=== PATIENT | female | born 1955 | race Caucasian/White ===

== ENCOUNTER 2021-07-22 13:48 | Inpatient (IN) | payer MEDICARE, BC ==
[2021-07-22] MEDS ORDERED: Sodium Chloride 0.9% 10 ML Syringe FLUSH PRN (14:51)
[2021-07-22] MEDS ORDERED: Sodium Chloride 0.9% 1,000 ML IV STA (15:12)
[2021-07-22] MEDS ORDERED: Metoclopramide 10 MG/2 ML SDV IVPUSH ONE (15:12)
[2021-07-22 16:54] LABS: CORONAVIRUS COVID-19 NAA POSITIVE (NEGATIVE)
[2021-07-22] MEDS ORDERED: Pantoprazole 40 MG Vial ONE (19:57)
[2021-07-22] MEDS ORDERED: Acetaminophen 325 MG Tab PO PRN ×2 (19:57→20:10)
[2021-07-22] MEDS ORDERED: Ondansetron 8 MG in Sodium Chloride 0.9% 50 ML IV PRN (19:57)
[2021-07-22] MEDS ORDERED: Dextrose 5%-0.45% NaCl 1,000 ML IV SCH (20:00)
[2021-07-23] MEDS: Multivitamin Tab PO SCH (08:25)
[2021-07-23] MEDS: Zinc Sulfate 220 MG Cap PO SCH (08:25)
[2021-07-23] MEDS: Enoxaparin 40 MG/0.4 ML Syringe SUBCUT SCH (08:25)
[2021-07-23] MEDS: Famotidine 20 MG Tab PO SCH (08:26)
[2021-07-23] MEDS ORDERED: predniSONE 10 MG Tab PO SCH (09:00)
[2021-07-23] MEDS ORDERED: REMDESIVIR 200 MG in Sodium Chloride 0.9% 250 ML IV ONE (09:00)
[2021-07-23] MEDS ORDERED: Dexamethasone 6 MG TABLET PO SCH (09:00)
[2021-07-23] MEDS ORDERED: Potassium Chloride 10 MEQ in Premix Bag 1 BAG IV SCH (11:00)
[2021-07-23] MEDS: Promethazine 25 MG Tab PO PRN (11:12)
[2021-07-23] MEDS ORDERED: Potassium Chloride 20 MEQ Tab.ER PO ONE (11:30)
[2021-07-23 17:41] VITALS: PULSE 79
[2021-07-24] MEDS: Multivitamin Tab PO SCH (08:00)
[2021-07-24] MEDS: Enoxaparin 40 MG/0.4 ML Syringe SUBCUT SCH (08:00)
[2021-07-24] MEDS: Zinc Sulfate 220 MG Cap PO SCH (08:00)
[2021-07-24] MEDS: Famotidine 20 MG Tab PO SCH (08:00)
[2021-07-24 08:02] VITALS: BP 125/82
[2021-07-24] MEDS: Promethazine 25 MG Tab PO PRN ×2 (08:22→13:30)
[2021-07-24] MEDS ORDERED: REMDESIVIR 100 MG in Sodium Chloride 0.9% 250 ML IV SCH (09:00)
== END 2021-07-24 14:00 | disposition home or self-care (01) | DRG 178 ==
LOC: JD.ED 13:48 → JD.MS 18:29 → JD.ICU 19:32
PROVIDERS: ADMIT Pediatrics; ATTEND Pediatrics
PROC: XW033E5 Introduction of Remdesivir Anti-infective into Peripheral Vein, Percutaneous Approach, New Technology Group 5 (ICD-10-PCS; principal; 2021-07-22)
PROC: 8E0ZXY6 Isolation (ICD-10-PCS; 2021-07-22)
DX: U07.1 COVID-19 (principal); S22.43XA Multiple fractures of ribs, bilateral, initial encounter for closed fracture; S52.202A Unspecified fracture of shaft of left ulna, initial encounter for closed fracture; K50.812 Crohn's disease of both small and large intestine with intestinal obstruction; E87.1 Hypo-osmolality and hyponatremia; I69.354 Hemiplegia and hemiparesis following cerebral infarction affecting left non-dominant side; W19.XXXA Unspecified fall, initial encounter; E86.0 Dehydration; R53.1 Weakness; E87.6 Hypokalemia; H54.7 Unspecified visual loss; Z88.0 Allergy status to penicillin; K50.90 Crohn's disease, unspecified, without complications; Z90.710 Acquired absence of both cervix and uterus; Z87.891 Personal history of nicotine dependence; Z87.01 Personal history of pneumonia (recurrent); Z86.19 Personal history of other infectious and parasitic diseases; Z91.011 Allergy to milk products; Z79.899 Other long term (current) drug therapy
CPT/HCPCS: 0240U; 36415; 71045; 80053; 81001; 83735; 84100; 84145; 84484; 85025; 85379; 86140; 87040; 93005; 94667; 94762; 97116; 97161; 97530; A9270-GY; C9113; J1650; J2765; J3480; J7030; J7042; J7050; J8597

== ENCOUNTER 2021-10-14 08:18 | Day surgery (SDC) | payer MEDICARE, BC ==
[~2021-10-14 08:18] MED LIST: Cefuroxime 10 MG/ML SYRINGE EYELF SCH; Lidocaine 1% PF 2 ML SDV INJECT SCH; Pilocarpine 4% Ophth Soln 15 ML Bot EYELF SCH
[2021-10-14] MEDS: Polymyxin B/Trimethoprim 10 ML Bottle EYELF SCH ×3 (08:59→10:25)
[2021-10-14] MEDS: Brimonidine 0.2% Ophth Soln 5 ML Bottle EYELF SCH ×3 (09:03→10:25)
[2021-10-14] MEDS: Phenylephrine 2.5% Ophth Soln 2 ML Bot EYELF SCH ×5 (09:06→09:46)
[2021-10-14] MEDS: Tropicamide 1% Ophth Soln 15 ML Bottle EYELF SCH ×4 (09:09→09:36)
[2021-10-14] MEDS: Tetracaine HCl/PF 0.5% 4 ML Bottle EYEBOTH SCH ×2 (09:46→10:07)
[2021-10-14 10:37] VITALS: BP 89/65; PULSE 70
== END 2021-10-14 10:33 | disposition home or self-care (01) ==
LOC: JD.SDS 08:18
PROVIDERS: ATTEND Ophthalmology
DX: H25.813 Combined forms of age-related cataract, bilateral (principal); H40.033 Anatomical narrow angle, bilateral; H35.373 Puckering of macula, bilateral; H02.831 Dermatochalasis of right upper eyelid; H02.834 Dermatochalasis of left upper eyelid; H16.103 Unspecified superficial keratitis, bilateral; H16.223 Keratoconjunctivitis sicca, not specified as Sjogren's, bilateral; H54.7 Unspecified visual loss; Z88.0 Allergy status to penicillin; Z87.891 Personal history of nicotine dependence; Z91.011 Allergy to milk products; Z98.890 Other specified postprocedural states; Z79.899 Other long term (current) drug therapy
CPT/HCPCS: 66984; J0697; C1780

== ENCOUNTER 2021-11-11 12:40 | Day surgery (SDC) | payer MEDICARE, BC ==
[2021-11-11] MEDS: Polymyxin B/Trimethoprim 10 ML Bottle EYERT SCH ×4 (13:36→15:33)
[2021-11-11] MEDS: Brimonidine 0.2% Ophth Soln 5 ML Bottle EYERT SCH ×4 (13:42→15:33)
[2021-11-11] MEDS: Phenylephrine 2.5% Ophth Soln 2 ML Bot EYERT SCH ×6 (13:51→15:14)
[2021-11-11] MEDS: Tropicamide 1% Ophth Soln 15 ML Bottle EYERT SCH ×4 (13:57→15:00)
[2021-11-11] MEDS: Tetracaine HCl/PF 0.5% 4 ML Bottle EYEBOTH SCH ×5 (14:03→15:20)
[2021-11-11] MEDS: Cefuroxime 10 MG/ML SYRINGE EYERT SCH ×2 (14:04→15:32)
[2021-11-11] MEDS: Lidocaine 1% PF 2 ML SDV INJECT SCH ×2 (14:04→15:21)
[2021-11-11] MEDS: Pilocarpine 4% Ophth Soln 15 ML Bot EYERT SCH ×2 (14:05→15:33)
[2021-11-11] MEDS ORDERED: Ondansetron 4 MG/2 ML SDV IVPUSH PRN (15:19)
[2021-11-11 15:48] VITALS: BP 108/60; PULSE 66
== END 2021-11-11 15:44 | disposition home or self-care (01) ==
LOC: JD.SDS 12:40
PROVIDERS: ATTEND Ophthalmology
DX: H25.811 Combined forms of age-related cataract, right eye (principal); H40.033 Anatomical narrow angle, bilateral; H35.373 Puckering of macula, bilateral; H16.223 Keratoconjunctivitis sicca, not specified as Sjogren's, bilateral; H52.31 Anisometropia; H16.103 Unspecified superficial keratitis, bilateral; K21.9 Gastro-esophageal reflux disease without esophagitis; Z96.1 Presence of intraocular lens; Z98.890 Other specified postprocedural states; Z88.0 Allergy status to penicillin; Z87.891 Personal history of nicotine dependence; H54.7 Unspecified visual loss; Z91.011 Allergy to milk products; Z79.899 Other long term (current) drug therapy
CPT/HCPCS: 66984; J0697; C1780

== ENCOUNTER 2023-05-26 19:27 | Inpatient (IN) | payer MEDICARE, BC ==
[2023-05-26 19:55] LABS: BASOPHILS PERCENT AUTO 0.1 % (0.0-1.0); EOSINOPHILS PERCENT AUTO 0.1 % (0.0-6.0); HEMATOCRIT 41.9 % (37.0-47.0); HEMOGLOBIN 14.9 gm/dl (12.0-16.0); IMMATURE GRAN ABSOLUTE AUTO 0.03 K/mm3 (0.00-0.05); IMMATURE GRAN PERCENT AUTO 0.4 % (0.0-0.4); LYMPHOCYTES ABSOLUTE AUTO 0.2 K/mm3 (1.0-4.8); LYMPHOCYTES PERCENT AUTO 2.7 % (24.0-44.0); MEAN CORPUSCULAR HEMOGLOBIN 33.1 pg (28.0-32.0); MEAN CORPUSCULAR HGB CONC 35.6 g/dl (32.0-36.0); MEAN CORPUSCULAR VOLUME 93.1 fl (83.0-99.0); MEAN PLATELET VOLUME 9.2 fl (9.4-12.3); MONOCYTES ABSOLUTE AUTO 0.4 K/mm3 (0.0-0.8); MONOCYTES PERCENT AUTO 6.1 % (0.0-8.0); NEUTROPHILS ABSOLUTE AUTO 6.1 K/mm3 (1.8-7.7); NEUTROPHILS PERCENT AUTO 90.6 % (41.0-71.0); PLATELET COUNT,PLT 176 K/mm3 (150-400)
[2023-05-26] MEDS ORDERED: Albuterol/Ipratropium 3.0-0.5 MG/3 ML Neb Soln NEB ONE (19:55)
[2023-05-26] MEDS ORDERED: Acetaminophen 325 MG Tab PO ONE (20:06)
[2023-05-26 20:20] LABS: A/G RATIO 0.6 (1-2); ALBUMIN 2.9 g/dl (3.4-5.0); ANION GAP 15.5 (5-15); BILIRUBIN TOTAL 0.4 mg/dL (0.2-1.0); BUN/CREATININE RATIO 8.8 (14-18); CALCIUM 8.2 mg/dL (8.5-10.1); CREATININE 0.8 mg/dL (0.55-1.02); EST CRCL DRUG DOSING (CG) 50.08 mL/min; MAGNESIUM 1.9 mg/dL (1.8-2.4); POTASSIUM,K 3.5 mEq/L (3.5-5.1); PROTEIN TOTAL,TP 7.6 g/dl (6.4-8.2)
[2023-05-26] MEDS ORDERED: Heparin Sodium 5,000 Units/ML Vial ONE (23:01)
[2023-05-26] MEDS: Heparin Sodium 5,000 Units/ML Vial SUBCUT SCH (23:16)
[2023-05-26] MEDS: Lactated Ringers 1,000 ML IV SCH (23:16)
[2023-05-27] MEDS: Albuterol/Ipratropium 3.0-0.5 MG/3 ML Neb Soln NEB PRN ×4 (00:41→21:03)
[2023-05-27] MEDS: Acetaminophen 325 MG Tab PO PRN ×2 (05:02→16:12)
[2023-05-27] MEDS: Heparin Sodium 5,000 Units/ML Vial SUBCUT SCH ×3 (06:12→22:13)
[2023-05-27] MEDS: Lactated Ringers 1,000 ML IV SCH ×3 (06:33→22:23)
[2023-05-27] MEDS ORDERED: Cyanocobalamin (Vitamin B12) 1,000 MCG/ML SDV IM SCH (08:15)
[2023-05-27] MEDS ORDERED: valACYclovir 1,000 MG Tab PO SCH (09:00)
[2023-05-27] MEDS ORDERED: Dexamethasone 6 MG TABLET PO SCH (09:00)
[2023-05-27] MEDS: Potassium Chloride 10 MEQ Tab.ER PO SCH (09:25)
[2023-05-27] MEDS: Hydrochlorothiazide 25 MG Tab PO SCH (09:26)
[2023-05-27] MEDS ORDERED: REMDESIVIR 100 MG in Sodium Chloride 0.9% 250 ML IV SCH (12:00)
[2023-05-27] MEDS: guaiFENesin 600 MG Tab.ER PO SCH (21:52)
[2023-05-27] MEDS: Rosuvastatin 10 MG Tab PO SCH (21:55)
[2023-05-28] MEDS: Albuterol/Ipratropium 3.0-0.5 MG/3 ML Neb Soln NEB PRN ×3 (00:51→21:59)
[2023-05-28] MEDS: guaiFENesin/Dextromethorphan 100-10 MG/5 ML Soln 5 ML Cup PO PRN ×2 (01:13→20:58)
[2023-05-28] MEDS: Acetaminophen 325 MG Tab PO PRN (01:13)
[2023-05-28] MEDS: Pantoprazole 40 MG Tab.CR PO SCH (06:58)
[2023-05-28] MEDS: predniSONE 20 MG Tab PO SCH (06:58)
[2023-05-28] MEDS: Heparin Sodium 5,000 Units/ML Vial SUBCUT SCH ×3 (06:59→22:33)
[2023-05-28] MEDS ORDERED: Benzocaine/Cetylpyridinium/Menthol Lozenge MUCMEM PRN (07:26)
[2023-05-28] MEDS: Potassium Chloride 10 MEQ Tab.ER PO SCH (09:01)
[2023-05-28] MEDS: guaiFENesin 600 MG Tab.ER PO SCH ×3 (09:02→20:41)
[2023-05-28] MEDS: Hydrochlorothiazide 25 MG Tab PO SCH (09:02)
[2023-05-28] MEDS: Lactated Ringers 1,000 ML IV SCH ×2 (09:13→20:44)
[2023-05-28 18:19] LABS: IMMATURE GRAN ABSOLUTE AUTO 0.03 K/mm3 (0.00-0.05); IMMATURE GRAN PERCENT AUTO 0.6 % (0.0-0.4); LYMPHOCYTES ABSOLUTE AUTO 0.3 K/mm3 (1.0-4.8); LYMPHOCYTES PERCENT AUTO 5.8 % (24.0-44.0); MEAN CORPUSCULAR HGB CONC 35.6 g/dl (32.0-36.0); MEAN CORPUSCULAR VOLUME 92.8 fl (83.0-99.0); MEAN PLATELET VOLUME 8.9 fl (9.4-12.3); MONOCYTES ABSOLUTE AUTO 0.3 K/mm3 (0.0-0.8); MONOCYTES PERCENT AUTO 6.6 % (0.0-8.0); NEUTROPHILS ABSOLUTE AUTO 4.2 K/mm3 (1.8-7.7); PLATELET COUNT,PLT 181 K/mm3 (150-400); RED BLOOD CELL COUNT 3.88 M/mm3 (4.10-5.30); WHITE BLOOD CELL COUNT,WBC 4.86 K/mm3 (3.9-11.3)
[2023-05-28 18:28] LABS: HEMOGLOBIN 12.8 gm/dl (12.0-16.0)
[2023-05-28] MEDS: Rosuvastatin 10 MG Tab PO SCH ×2 (20:41→20:43)
[2023-05-28] MEDS: AZATHIOPRINE 50 MG PO SCH (20:57)
[2023-05-29] MEDS: Albuterol/Ipratropium 3.0-0.5 MG/3 ML Neb Soln NEB PRN (04:31)
[2023-05-29] MEDS: Lactated Ringers 1,000 ML IV SCH (05:14)
[2023-05-29 05:54] LABS: CALCIUM 8.1 mg/dL (8.5-10.1); CREATININE 0.6 mg/dL (0.55-1.02); EST CRCL DRUG DOSING (CG) 66.78 mL/min
[2023-05-29] MEDS: Heparin Sodium 5,000 Units/ML Vial SUBCUT SCH (06:04)
[2023-05-29] MEDS: predniSONE 20 MG Tab PO SCH (06:04)
[2023-05-29] MEDS: Pantoprazole 40 MG Tab.CR PO SCH (06:04)
[2023-05-29] MEDS ORDERED: Albuterol 0.083% 2.5 MG/3 ML Neb Soln NEB PRN (07:56)
[2023-05-29] MEDS: Hydrochlorothiazide 25 MG Tab PO SCH (08:43)
[2023-05-29] MEDS: Potassium Chloride 20 MEQ Tab.ER PO SCH ×2 (08:43→20:35)
[2023-05-29] MEDS: Enoxaparin 40 MG/0.4 ML Syringe SUBCUT SCH (08:43)
[2023-05-29] MEDS: Albuterol/Ipratropium 3.0-0.5 MG/3 ML Neb Soln NEB SCH ×3 (10:03→20:51)
[2023-05-29] MEDS: guaiFENesin/Dextromethorphan 100-10 MG/5 ML Soln 5 ML Cup PO SCH ×2 (13:54→20:34)
[2023-05-29] MEDS: AZATHIOPRINE 50 MG PO SCH (20:35)
[2023-05-29] MEDS: Rosuvastatin 10 MG Tab PO SCH (20:35)
[2023-05-30 05:42] LABS: ANION GAP 10.6 (5-15); BUN/CREATININE RATIO 16.7 (14-18); C-REACTIVE PROTEIN 7.7 mg/dL (<1.0); CALCIUM 8.2 mg/dL (8.5-10.1); CREATININE 0.6 mg/dL (0.55-1.02); EST CRCL DRUG DOSING (CG) 66.78 mL/min; MAGNESIUM 1.8 mg/dL (1.8-2.4); POTASSIUM,K 3.6 mEq/L (3.5-5.1)
[2023-05-30] MEDS: Albuterol/Ipratropium 3.0-0.5 MG/3 ML Neb Soln NEB SCH ×4 (05:58→20:41)
[2023-05-30] MEDS: Pantoprazole 40 MG Tab.CR PO SCH (06:11)
[2023-05-30] MEDS: guaiFENesin/Dextromethorphan 100-10 MG/5 ML Soln 5 ML Cup PO SCH ×3 (06:11→20:15)
[2023-05-30] MEDS: predniSONE 20 MG Tab PO SCH (06:11)
[2023-05-30] MEDS ORDERED: Potassium Chloride 20 MEQ Tab.ER PO ONE (09:56)
[2023-05-30] MEDS: Potassium Chloride 20 MEQ Tab.ER PO SCH (09:59)
[2023-05-30] MEDS: Hydrochlorothiazide 25 MG Tab PO SCH (09:59)
[2023-05-30] MEDS: Enoxaparin 40 MG/0.4 ML Syringe SUBCUT SCH (10:00)
[2023-05-30] MEDS: Magnesium Oxide 400 MG Tab PO SCH (10:02)
[2023-05-30] MEDS: Rosuvastatin 10 MG Tab PO SCH (20:15)
[2023-05-30] MEDS: AZATHIOPRINE 50 MG PO SCH (20:17)
[2023-05-31 05:19] LABS: ANION GAP 10.5 (5-15); C-REACTIVE PROTEIN 3.5 mg/dL (<1.0); CALCIUM 8.1 mg/dL (8.5-10.1); CREATININE 0.6 mg/dL (0.55-1.02); EST CRCL DRUG DOSING (CG) 66.78 mL/min; MAGNESIUM 1.6 mg/dL (1.8-2.4)
[2023-05-31 05:21] LABS: POTASSIUM,K 3.5 mEq/L (3.5-5.1)
[2023-05-31] MEDS: Pantoprazole 40 MG Tab.CR PO SCH (06:00)
[2023-05-31] MEDS: predniSONE 20 MG Tab PO SCH (06:00)
[2023-05-31] MEDS: guaiFENesin/Dextromethorphan 100-10 MG/5 ML Soln 5 ML Cup PO SCH ×2 (06:00→17:09)
[2023-05-31] MEDS: Albuterol/Ipratropium 3.0-0.5 MG/3 ML Neb Soln NEB SCH ×2 (06:05→09:29)
[2023-05-31] MEDS ORDERED: Magnesium Sulfate/Water 2 GM in Premix Bag 1 BAG IV ONE (07:46)
[2023-05-31] MEDS: Enoxaparin 40 MG/0.4 ML Syringe SUBCUT SCH (08:26)
[2023-05-31] MEDS: Hydrochlorothiazide 25 MG Tab PO SCH (08:27)
[2023-05-31] MEDS: Magnesium Oxide 400 MG Tab PO SCH (08:27)
[2023-05-31] MEDS ORDERED: Sodium Chloride 1 GM Tab PO ONE (09:00)
[2023-05-31] MEDS ORDERED: Potassium Chloride 20 MEQ Tab.ER PO ONE (09:00)
[2023-05-31 16:45] VITALS: BP 112/76; PULSE 96
== END 2023-05-31 16:32 | disposition home or self-care (01) | DRG 177 ==
LOC: JD.ED 19:27 → JD.MS 21:14
PROVIDERS: ADMIT Nurse Practitioner; ATTEND Hospitalist
PROC: 3E0333Z Introduction of Anti-inflammatory into Peripheral Vein, Percutaneous Approach (ICD-10-PCS; principal; 2023-05-26)
PROC: XW033E5 Introduction of Remdesivir Anti-infective into Peripheral Vein, Percutaneous Approach, New Technology Group 5 (ICD-10-PCS; 2023-05-26)
DX: U07.1 COVID-19 (principal); R09.02 Hypoxemia; J12.82 Pneumonia due to coronavirus disease 2019; J96.01 Acute respiratory failure with hypoxia; E87.1 Hypo-osmolality and hyponatremia; Z91.011 Allergy to milk products; Z79.899 Other long term (current) drug therapy; Z86.16 Personal history of COVID-19; K50.90 Crohn's disease, unspecified, without complications; Z66 Do not resuscitate; E87.6 Hypokalemia; M19.90 Unspecified osteoarthritis, unspecified site; E86.0 Dehydration; Z88.0 Allergy status to penicillin; Z91.040 Latex allergy status; Z87.891 Personal history of nicotine dependence; Z98.890 Other specified postprocedural states; Z87.440 Personal history of urinary (tract) infections
CPT/HCPCS: 36415; 80053; 83735; 85025; 94640; 99285; A9270; 71250; 71250-26; 80048; 82947; 85379; 86140; 94668; 94761; 97110-GP; 97116-GP; 97162-GP; 97530-GP; 99222; 99232; 99239; J1644; J1650; J3475; J7120; J7512; J7620-GY